=== PATIENT | male | born 1990 | race Caucasian/White ===

== ENCOUNTER 2020-03-08 10:10 | Emergency (ER) | payer SELFPAY ==
[2020-03-08 10:19] VITALS: BP 130/93; PULSE 112; RESP 16; TEMP 37.2; O2SAT 97; BMI 36.9
--- NOTE | 2020-03-08 10:22 | XR_ITS ---
WS: [id number] Left forearm, 2 views, 03/08/2020 Clinical Data: dog bite Comparison: None. Findings: No fracture or dislocations are seen. The soft tissues are normal. The visualized left wrist and elbo w show no obvious abnormalities. No radiopaque foreign body can be seen. XR/XR forearm LT 2V [id number] Impression: Negative for fracture.
--- NOTE | 2020-03-08 10:30 | ED_ITS ---
HPI - Animal Bite General: Chief Complaint: Animal Bite Stated Complaint: left forearm dog bite Time Seen by Provider: 03/08/20 10:16 History of Present Illness: HPI narrative: This is a 29-year-old patient presenting with a dog bite that occurred on Saturday. He was swimming at the [employer] in [place] and a stray dog bit him on the left forearm. He has 1 puncture wound to the upper forearm and a small one closer to the wrist on the ulnar aspect. He has been keeping them clean and applying triple antibiotic ointment. Today the area on his upper forearm is red, hot, swollen and he has red streaking up to his axilla. He is not feeling well in general. He does not have a fever but he is also been taking Tylenol. He does not know anything about the animal that caused the bite. He is generally healthy other than hypertension and takes lisinopril for that. MD complaint: animal bite Onset (ago): day(s) (2) Animal: dog Description of animal: unknown animal Mechanism: bite Location - Extremities: Left: forearm Pain description: dull Context: unprovoked Associated symptoms: Reports diaphoresis and other (General malaise); Deny headache(s) Treatments prior to arrival: antibiotic ointment Review of Systems General: Reports: 10 or more systems reviewed and unremarkable except in HPI and below Const: Reports: diaphoresis Eyes: Denies: change in vision ENMT: Denies: odynophagia Card: Denies: chest pain or swelling of feet/ankles Resp: Denies: dyspnea, productive cough or non-productive cough GI: Denies: abdominal pain, nausea or vomiting : Denies: flank pain Musc: Denies: neck pain or back pain Skin/Breast: Denies: rash Neuro: Denies: headache(s), numbness in extremities or weakness in extremities Nicko/Lymph: Denies: easy bruising or easy bleeding PFS ED PFSH: Social History (Updated 03/08/20 @ 10:23 by Liss De León RN) Smoking and tobacco status: former smoker Second hand smoke exposure: No Physical Exam Const: COMMON NORMALS: no acute distress, patient oriented x3, no limitations and alert GENERAL APPEARANCE: cooperative and comfortable HENMT: HEAD & SCALP: normal to inspection FACE & SINUS: normal facial exam Eye: GENERAL EYE: appearance normal, both eyes and all related structures Neck/C-Spine: COMMON NORMALS: supple, no meningeal signs and no JVD Chest: COMMONS NORMALS: normal inspection of the chest Resp: COMMON NORMALS: normal respiratory effort, No use of accessory muscles and clear to auscultation bilaterally AUSCULTATION: clear to auscultation bilaterally Cardio: COMMON NORMALS: no JVD, regular rhythm and No murmurs present (Cardio) RATE: tachycardic RHYTHM: regular rhythm GI: COMMON NORMALS: Normal to inspection, nondistended, normoactive bowel sounds present, Soft to palpation and non-tender INSPECTION: Yes normal to inspection AUSCULTATION: Yes normoactive bowel sounds PALPATION: Yes Soft to palpation Back/Pelvis: COMMON NORMALS: thoracic and lumbar spine normal to inspection Extremity: GENERAL: Yes normal exam except as noted LEFT UPPER EXTREMITY: Yes lower arm (Small puncture on the ulnar aspect near the wrist. This does not appear infected.) Left lower arm: Yes inspection (Puncture on the dorsal aspect of the upper forearm with surrounding erythema and streaking to the axilla. No fluctuance no drainage) Neuro: COMMON NORMALS: patient oriented x3, moves all extremities, no focal motor deficits and no sensory deficits noted SENSORIUM/ORIENTATION: Yes alert MENINGEAL SIGNS: Yes no meningeal signs Psych: COMMON NORMALS: mental status grossly normal, cooperative and normal affect Skin: COMMON NORMALS: no rashes or lesions noted and turgor normal GENERAL SKIN EXAM: no rashes or lesions noted and turgor normal Course ED course: X-ray looked good. Rabies prophylaxis and vaccination was started in the ED. Instructions were given for follow-up. Augmentin was given for infection and patient was given detailed return precautions. Vital Signs: Vital signs: Vital Signs Temperature 99.0 F 03/08/20 10:19 Pulse Rate 97 03/08/20 12:22 Respiratory Rate 18 03/08/20 12:22 Blood Pressure 144/88 03/08/20 12:22 Pulse Oximetry 98 03/08/20 12:22 MDM - Animal Bite MDM Narrative: Medical decision making narrative: Dog bite from unknown animal . Animal appeared relatively healthy per the patient however we discussed the need for rabies prophylaxis. Tetanus is up-to-date. There is a clear infection and will start some antibiotics. Also get a get an x-ray to look for any evidence of gas formation. Discharge Plan Discharge Patient Disposition: Home, Self-Care Clinical Impression: Need for prophylactic vaccination and inoculation against rabies Dog bite of left forearm with infection Qualifiers: Encounter type: initial encounter Qualified Code(s): S51.852A - Open bite of left forearm, initial encounter Condition: Stable Prescriptions: New amoxicillin-pot clavulanate 875-125 mg tablet 1 tab PO BID Qty: 28 RF: 0 No Action lisinopril 20 mg tablet 20 mg PO DAILY RF: 0 olanzapine 5 mg tablet 5 mg PO DAILY RF: 0 omeprazole 20 mg capsule,delayed release(DR/EC) 20 mg PO DAILY RF: 0 Probiotic 1 cap PO DAILY RF: 0 Discharge Orders: Discharge Order (Routine); Ordered 03/08/20 Ordered By: Sheila Medellin Discharge Diet: Usual diet Discharge Activity: Resume usual activity Patient Instructions: Animal Bite (ED), Rabies (ED) Activity Restrictions/Additional Instructions: Follow-up for the rest of the rabies series as instructed. Return to the emergency department if increasing redness, fever, swelling, streaking. Take the antibiotic exactly as prescribed. You may take ibuprofen and Tylenol for pain. Stand Alone Forms: Work/School Release Discharge Date/Time: 03/08/20 12:23 Coding Level of Care Code ED [employer]sc[employer] for Jonna Hester Exam Comprehensive
[2020-03-08] MEDS: ibuprofen 600 mg Tablet PO (10:35)
[2020-03-08] MEDS: amoxicillin-clav 875-125 mg Tablet 1 TAB PO (10:35)
[2020-03-08] MEDS: rabies vaccine 2.5 unit SDV IM (10:37)
[2020-03-08 12:22] VITALS: BP 144/88; PULSE 97; RESP 18; O2SAT 98
== END 2020-03-08 12:23 | disposition home or self-care (01) ==
PROVIDERS: Emergency Provider Emergency Medicine
DX: S51.852A Open bite of left forearm, initial encounter (principal); W54.0XXA Bitten by dog, initial encounter; Z29.14 Encounter for prophylactic rabies immune globulin; Z87.891 Personal history of nicotine dependence
CPT/HCPCS: 12345; 73090; 90375; 90471; 90675; 99281; 99283

== ENCOUNTER → 2020-06-28 15:57 | Outpatient (BNVA) | payer BC, SELFPAY | PROVIDERS: Visit Provider Family Medicine | DX: Z11.59 Encounter for screening for other viral diseases (principal); Z20.828 Contact with and (suspected) exposure to other viral communicable diseases | CPT/HCPCS: 87635 ==

== ENCOUNTER → 2020-09-21 09:59 | Outpatient (BNVA) | payer BC, SELFPAY | PROVIDERS: Visit Provider Family Medicine | DX: Z20.828 Contact with and (suspected) exposure to other viral communicable diseases (principal) | CPT/HCPCS: 87635 ==

== ENCOUNTER 2021-04-07 06:28 | Outpatient (CLI) | payer OTHER, SELFPAY ==
[2021-04-07 06:50] VITALS: BMI 34.7
--- NOTE | 2021-04-07 07:21 | ECG_ITS ---
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 Baseline heart rate was 88 beats per minute. Baseline blood pressure was 127/81 millimeters of mercury. Target heart rate was 191 beats per minute. Maximum heart rate achieved was 186, which was 97 % of the target heart rate. Maximum blood pressure was 177/101 millimeters of mercury. Total exercise time was 12 minutes 29 sec. Maximum METs achieved was 13.5, maximum VO2 was 47.3. The reason for ending the test was maximum effort achieved. The patient complained of shortness of breath during the stress test, which then resolved at the end of the test. ELECTROCARDIOGRAM: BASELINE: Showed sinus rhythm, normal axis, no significant ST-T changes at the baseline noted. EXERCISE: At the peak exercise level, no significant ST-T changes suggestive of ischemia noted. RECOVERY: During the recovery period, heart rate dropped appropriately. No significant ST-T changes in the recovery suggestive of ischemia noted. CONCLUSION: 1. Exercise capacity good. 2. Heart rate response was appropriate. 3. Blood pressure response was appropriate. 4. Symptoms not suggestive of ischemia. 5. Electrocardiogram portion of the stress test was not suggestive of ischemia. Electronically Signed On 05-16-2021 19:23:56 CDT by NITISH ALAN [id number]
--- NOTE | 2021-04-07 07:22 | NMCV_ITS ---
NM eliel perf SPECT r/s* [id number] Sky Villar Age: 30 Gender: M : 1990 Exam Date: 04/07/2021 07:57 Ordering Phys: Yvon Alan MD ([email or web address]) Technologist: SOCO Chavira Exam Location: [facility] Indications: SHORTNESS OF BREATH STRESS TEST [facility] IMAGE PROTOCOL Rest/Stress 1 Exercise Day Radiopharmaceutical Dose (mCi) Administration Site Administered by Rest: Tc-99m 10.9 IV SOCO Faith Sestamibi Stress:Tc-99m 32.9 IV SOCO Faith Sestamibi Rest: 07-Apr-2021 60 Discovery 630 Stress: 07-Apr-2021 30 Discovery 630 Radiopharmaceutical was injected at 87 % maximum heart rate. Images obtained in supine and prone position. SPECT RESULTS Technical Quality: Excellent Raw Data Analysis: Normal Image Corrections: No attenuation or motion correction applied Summed Stress Score: 3 Summed Rest Score: 0 Summed Difference Score: 3 PERFUSION FINDINGS Medium-sized area of persistently decreased tracer uptake noted in basal to mid anterior wall with mild reversibility in the anterior segment noted which could be an artifact and not the ischemia. Medium-sized area of basal to mid inferior inferolateral wall on both rest and stress images suggestive of artifact. FUNCTIONAL RESULTS (calculated via Gated SPECT) Stress Image LV EF (%): 71 Stress EDV (mL):121 TID: 0.97 Stress ESV (mL):35 Rest Image LV EF (%): 71 FUNCTIONAL FINDINGS: There is normal left ventricular systolic function. IMPRESSIONS Study is negative for ischemia. EKG segment will be documented separately. Yvon Alan MD (Electronically Signed) Final Date: 07 April 2021 18:10 S
[2021-04-07 08:59] VITALS: BP 153/101; PULSE 104
--- NOTE | 2021-04-07 10:15 | USCV_ITS ---
Sky Villar Age: 30 Gender: M : 1990 Exam Date: 04/07/2021 07:45 Ordering Phys: Yvon Alan MD ([email or web address]) Technologist: Ludmila De León [place] [facility] [place]ication: SOB BP: / HR: 102 Rhythm: Sinus Technical Quality: Adequate MEASUREMENTS (Male / Female) Normal Values 2D ECHO LV Diastolic Diameter PLAX 4.7 cm 4.2 - 5.9 / 3.9 - 5.3 cm LV Systolic Diameter PLAX 3.2 cm LV Chamber Size 3.9 cm IVS Diastolic Thickness 1.1 cm 0.6 - 1.0 / 0.6 - 0.9 cm IVS Systolic Thickness 1.4 cm LVPW Diastolic Thickness 1.3 cm 0.6 - 1.0 / 0.6 - 0.9 cm LVPW Systolic Thickness 1.6 cm RV Chamber Size 2.9 cm LVOT Diameter 2.0 cm LV Ejection Fraction 2D Teich 59.1 % LV Ejection Fraction MOD 2C 72.0 % LV Ejection Fraction 2C AL 72.4 % LA Diameter 2.8 cm LA Width 3.1 cm LA Height 3.5 cm RA Width 3.5 cm RA Height 4.0 cm Aorta at Sinotubular Diameter 3.0 cm M-MODE LV Diastolic Diameter MM 6.4 cm 4.2 - 5.9 / 3.9 - 5.3 cm LV Systolic Diameter MM 4.5 cm LV Ejection Fraction MM Teich 55.7 % IVS Diastolic Thickness MM 1.1 cm 0.6 - 1.0 / 0.6 - 0.9 cm IVS Systolic Thickness MM 1.4 cm LVPW Diastolic Thickness MM 1.6 cm 0.6 - 1.0 / 0.6 - 0.9 cm LVPW Systolic Thickness MM 1.3 cm Aortic Annulus Diameter 3.5 cm LA Ao Ratio MM 0.9 MV E Point Septal Separation 0.7 cm DOPPLER AV Peak Velocity 118.0 cm/s LVOT Peak Velocity 107.0 cm/s AV Area Cont Eq vti 2.5 cm squared AV Area Cont Eq pk 2.9 cm squared MV Area PHT 3.2 cm squared Mitral E to A Ratio 1.1 MV E' Velocity 35.5 cm/s Mitral E to MV E' Ratio 5.7 Mitral E to LV E' Lateral Ratio 5.1 Mitral E to LV E' Septal Ratio 6.5 TR Peak Velocity 184.2 cm/s TR Peak Gradient 13.6 mmHg TR Mean Velocity 147.4 cm/s TR Mean Gradient 9.4 mmHg TR Velocity Time Integral 57.8 cm TV Peak E Velocity 80.0 cm/s PV Peak Velocity 67.0 cm/s RV Acceleration Time 0.1 s RV Ejection Time 0.4 s RV AcT/ET 0.3 FINDINGS Left Ventricle Normal left ventricular cavity size. Normal left ventricular systolic function. No regional wall motion abnormalities. Left ventricular ejection fraction is estimated at 60 %. Normal diastolic function. Right Ventricle The right ventricle is normal in size and function. RVSP could not be calculated due to incomplete tricuspid regurgitation velocity profile. Right Atrium The right atrium is normal in size. Left Atrium The left atrium is normal in size. Mitral Valve Structurally normal mitral valve. No mitral valve stenosis. Trace mitral valve regurgitation. Aortic Valve Aortic valve sclerosis without stenosis. Trace aortic valve regurgitation. Tricuspid Valve Trace tricuspid valve regurgitation. Pulmonic Valve Structurally normal pulmonic valve without significant stenosis. There is no pulmonic regurgitation. Pericardium Normal pericardium without effusion. Aorta Normal ascending aorta dimension. CONCLUSIONS 1-Normal left ventricular cavity size. Normal left ventricular systolic function. No regional wall motion abnormalities. Left ventricular ejection fraction is estimated at 60 %. Normal diastolic function. 2-There is no pericardial effusion. 3-No significant valve abnormalities. 4-The right ventricle is normal in size and function. RVSP could not be calculated due to incomplete tricuspid regurgitation velocity profile. 5-Right atrial pressure is around 5 mm of mercury. 6-There are no prior echocardiogram studies to compare. Yvon Alan MD (Electronically Signed) Final Date: 09 April 2021 17:43 S
== END 2021-04-07 06:29 | disposition home or self-care (01) ==
PROVIDERS: PCP Family Medicine; Visit Provider Internal Medicine Cardiovascular Disease
DX: R06.02 Shortness of breath (principal); R07.9 Chest pain, unspecified
CPT/HCPCS: 78452; 93017; 93306; A9500

== ENCOUNTER → 2021-06-26 13:17 | Outpatient (BNVA) | payer OTHER, SELFPAY | PROVIDERS: PCP Family Medicine; Visit Provider Nurse Practitioner Family | DX: Z20.822 Contact with and (suspected) exposure to COVID-19 (principal) | CPT/HCPCS: 87635 ==

== ENCOUNTER 2022-10-19 05:27 | Emergency (ER) | payer OTHER, SELFPAY ==
[2022-10-19 05:28] VITALS: BMI 33.2
[2022-10-19 05:34] VITALS: BP 177/100; PULSE 91; RESP 16; TEMP 36.7; O2SAT 98
--- NOTE | 2022-10-19 05:39 | CTR_ITS ---
PROCEDURE INFORMATION: Exam: CT Head Without Contrast Exam date and time: 10/19/2022 5:45 AM Age: 31 years old Clinical indication: Pain; Headache; Patient HX: C/O AVILES, dizziness, and near syncope. TECHNIQUE: Imaging protocol: Computed tomography of the head without contrast. Radiation optimization: All CT scans at this facility use at least one of these dose optimization techniques: automated exposure control; mA and/or kV adjustment per patient size (includes targeted exams where dose is matched to clinical indication); or iterative reconstruction. REPORTING DATA: Count of CT and Cardiac NM exams in prior 12 months: This patient has received 0 known CTs and 0 known cardiac nuclear medicine studies in the 12 months prior to the current study. COMPARISON: No relevant prior studies available. RADIATION DOSE METRICS: Total DLP (mGy-cm): 1102.78 FINDINGS: Brain: Normal. No hemorrhage. Unremarkable white matter. No mass effect. Cerebral ventricles: No ventriculomegaly. Paranasal sinuses: Visualized sinuses are unremarkable. No fluid levels. Mastoid air cells: Visualized mastoid air cells are well aerated. Bones/joints: Unremarkable. No acute fracture. Soft tissues: Unremarkable. CT/CT head wo con* [id number] IMPRESSION: No acute intracranial abnormality.
--- NOTE | 2022-10-19 05:40 | W.ED.DIZZY ---
Documented by User: Stacey Gonzales MD 10/19/22 05:43 HPI - Dizziness General: Chief Complaint: Dizziness Stated Complaint: DIZZY Time Seen by Provider: 10/19/22 05:40 Source: patient and EMS Mode of arrival: EMS Limitations: no limitations History of Present Illness: HPI Narrative: 31-year-old male who states that last night around 11 he started having some nausea he states when he got up this morning and went to the bathroom was feeling lightheaded and nauseous he states that he he then believes he had a syncopal event he woke up to his shaking him he states that he has not taken his blood pressure pill this morning so he is hypertensive he has had some mild chest pains that he states is minimal and currently resolved he states he still has some nausea denies any abdominal pain denies headache to me but states that he did pass out. Associated symptoms: Reports chest pain, nausea and syncope; Denies chills or headache(s) Review of Systems Const: Denies: fever(s), chills, body aches or change in appetite Eyes: Denies: blurry vision or eye discomfort ENMT: Denies: throat pain or dental pain Card: Reports: chest pain and syncope Resp: Denies: dyspnea GI: Reports: nausea : Denies: dysuria Musc: Denies: neck pain or back pain Skin/Breast: Denies: rash Neuro: Denies: headache(s) Psych: Denies: depression Nicko/Lymph: Denies: easy bruising All/Imm: Denies: urticaria PFSH ED PFSH: Medical History History of hypertension Shortness of breath Family History Other CAD (coronary artery disease) Hypertension Social History Second hand smoke exposure: No Physical Exam Const: COMMON NORMALS: no acute distress, patient oriented x3 and healthy appearing HENMT: COMMON NORMALS: normocephalic and atraumatic HEAD & SCALP: normocephalic and atraumatic Eye: COMMON NORMALS: Equal, round and reactive pupils present and EOMs intact bilaterally PUPIL: Yes Equal, round and reactive pupils present Neck/C-Spine: COMMON NORMALS: full ROM and supple Chest: COMMONS NORMALS: normal inspection of the chest and normal palpation of entire chest wall Resp: COMMON NORMALS: normal respiratory effort, No retractions, No use of accessory muscles and clear to auscultation bilaterally AUSCULTATION: clear to auscultation bilaterally Cardio: COMMON NORMALS: regular rate, regular rhythm and No murmurs present (Cardio) RATE: regular rate RHYTHM: regular rhythm GI: COMMON NORMALS: Normal to inspection, nondistended, normoactive bowel sounds present, Soft to palpation, non-tender and no masses PALPATION: Yes Soft to palpation Extremity: COMMON NORMALS: normal to inspection and full ROM Neuro: COMMON NORMALS: patient oriented x3, moves all extremities and no focal motor deficits Psych: COMMON NORMALS: mental status grossly normal, Normal thought process present and cooperative THOUGHT PROCESS: Normal thought process present Skin: COMMON NORMALS: no rashes or lesions noted and no wounds GENERAL SKIN EXAM: no rashes or lesions noted Course Vital Signs: Vital signs: Vital Signs Temperature 98.1 F 10/19/22 05:34 Pulse Rate 81 10/19/22 09:21 Respiratory Rate 18 10/19/22 09:21 Blood Pressure 127/87 10/19/22 09:21 Pulse Oximetry 98 10/19/22 09:21 Oxygen Delivery Me thod 10/19/22 05:34 MDM - Dizziness Medical Decision Making Patient presents here with dizziness along with a syncopal event patient's pending blood work along with imaging care turned over to Dr. Castillo at shift change Lab Data 10/19/22 05:35 10/19/22 05:[address] 10/19/22 05:39 IMPRESSION: No acute intracranial abnormality. Chest X-Ray 10/19/22 07:49 IMPRESSION: Unremarkable chest radiograph. Laboratory Results WBC 11.3 10^3/uL (4.0-10.0) H 10/19/22 05:35 RBC 5.31 10^6/uL (4.1-5.3) H 10/19/22 05:35 Hgb 15.7 g/dL (11.7-16.6) 10/19/22 05:35 Hct 46.7 % (42.0-52.0) 10/19/22 05:35 MCV 87.9 fl (80-94) 10/19/22 05:35 MCH 29.6 pg (28.0-34.0) 10/19/22 05:35 MCHC 33.6 g/dL (30.0-36.0) 10/19/22 05:35 RDW 12.4 % (12.1-15.1) 10/19/22 05:35 Plt Count 240 10^3/cmm (130-400) 10/19/22 05:35 MPV 12.1 fL (7.4-10.4) H 10/19/22 05:35 Neut % (Auto) 70.5 % 10/19/22 05:35 Lymph % (Auto) 20.1 % 10/19/22 05:35 [place] % (Auto) 8.2 % 10/19/22 05:35 Eos % (Auto) 0.6 % 10/19/22 05:35 Baso % (Auto) 0.4 % 10/19/22 05:35 Neut # (Auto) 7.94 10^3/uL (1.8-7.7) H 10/19/22 05:35 Lymph # (Auto) 2.3 10^3/uL (0.8-4.8) 10/19/22 05:35 [place] # (Auto) 0.9 10^3/uL (0.2-0.9) 10/19/22 05:35 Eos # (Auto) 0.1 10^3/uL (0.0-0.8) 10/19/22 05:35 Baso # (Auto) 0.1 10^3/uL (0.0-0.1) 10/19/22 05:35 Nucleated RBC % (auto) 0 % 10/19/22 05:35 Nucleated RBCs # 0.0 /100WBC 10/19/22 05:35 Sodium 138 mmol/L (136-145) 10/19/22 05:35 Potassium 3.7 mmol/L (3.5-5.1) 10/19/22 05:35 Chloride 99 mmol/L (98-107) 10/19/22 05:35 Carbon Dioxide 26 mmol/L (22-29) 10/19/22 05:35 Anion Gap 16.7 (5-19) 10/19/22 05:35 BUN 15 mg/dL (6-20) 10/19/22 05:35 Creatinine 1.0 mg/dL (0.7-1.2) 10/19/22 05:35 GFR Calculation 87.7 mL/min (90-130) L 10/19/22 05:35 Glucose 95 mg/dL (65-115) 10/19/22 05:35 Calculated Osmolality 287 mOsm/kg (285-295) 10/19/22 05:35 Calcium 10.3 mg/dL (8.5-10.5) 10/19/22 05:35 Total Bilirubin 0.7 mg/dL (0.15-1.2) 10/19/22 05:35 AST 52 U/L (0-40) H 10/19/22 05:35 ALT 40 U/L (0-41) 10/19/22 05:35 Alkaline Phosphatase 93 U/L (40-130) 10/19/22 05:35 Troponin T Baseline 6 ng/L (0-15) 10/19/22 05:35 Troponin T 120 Minute 6.00 ng/L (0-15) 10/19/22 07:55 Delta Troponin T 0 ABS# (0-10) 10/19/22 07:55 Total Protein 8.8 g/dL (6.6-8.7) H 10/19/22 05:35 Albumin 4.9 g/dL (3.5-5.2) 10/19/22 05:35 Globulin 3.9 g/dL (1.3-4.6) 10/19/22 05:35 Lipase 18 U/L (13-60) 10/19/22 05:35 Discharge Plan Discharge Patient Disposition: Home Clinical Impression: Vasovagal near-syncope Condition: Stable Prescriptions: No Action amoxicillin-pot clavulanate [Augmentin] 875-125 mg tablet 1 tab PO BID 7 Days Qty: 14 0RF prednisone 20 mg tablet 20 mg PO DAILY 5 Days Qty: 5 0RF metoprolol tartrate 25 mg tablet 25 mg PO BID omeprazole 20 mg capsule,delayed release(DR/EC) 20 mg PO DAILY PRN Discharge Orders: Discharge ED (Routine); Ordered 10/19/22 Ordered By: Carlin Castillo Referrals: Lizzy Epstein MD [Primary Care Provider] - Discharge Diet: Usual diet Discharge Activity: Increase activity as tolerated Patient Instructions: Opioid Safety, Pain Management Activity Restrictions/Additional Instructions: You were seen today for a near syncopal episode. Your symptoms improved after fluids. You did have a second episode when your blood was redrawn which also responded to time and fluids. Some patients have vasovagal responses that are more easily triggered than others. Maintain good fluid intake rest the remainder of today follow-up your primary care doctor if symptoms persist or change. Your EKGs and heart enzymes were normal. Sign Out Sign Out Data: Patient Sign Out occurred on 10/19/22 at 06:02. Patient's care was discussed, and care was transferred from to Carlin Castillo DO. Coding Level of Care Code ED Artillery Officer for Chg Fwd Documented by User: Carlin Castillo DO 10/22/22 07:12 HPI - Dizziness General: Chief Complaint: Dizziness Stated Complaint: DIZZY Time Seen by Provider: 10/19/22 05:40 [facility] ED PFSH: Medical History History of hypertension Shortness of breath Family History Other CAD (coronary artery disease) Hypertension Social History Second hand smoke exposure: No Course Vital Signs: Vital signs: Vital Signs Temperature 98.1 F 10/19/22 05:34 Pulse Rate 81 10/19/22 09:21 Respiratory Rate 18 10/19/22 09:21 Blood Pressure 127/87 10/19/22 09:21 Pulse Oximetry 98 10/19/22 09:21 Oxygen Delivery Me thod 10/19/22 05:34 MDM - Dizziness Medical Decision Making Patient presents here with dizziness along with a syncopal event patient's pending blood work along with imaging care turned over to Dr. Castillo at shift change Patient care handoff received from Janet umana of ED evaluation. I personally saw and evaluated patient and reperformed mixon portions of E/M. Patient seen and examined. After the fluid is doing much better with the blood draw he had another vasovagal episode passed out got mildly diaphoretic it resolved. He is feeling better now we will go and discharge patient home follow-up with primary care Lab Data 10/19/22 05:35 10/19/22 05:[address] 10/19/22 05:39 IMPRESSION: No acute intracranial abnormality. Chest X-Ray 10/19/22 07:49 IMPRESSION: Unremarkable chest radiograph. Laboratory Results WBC 11.3 10^3/uL (4.0-10.0) H 10/19/22 05:35 RBC 5.31 10^6/uL (4.1-5.3) H 10/19/22 05:35 Hgb 15.7 g/dL (11.7-16.6) 10/19/22 05:35 Hct 46.7 % (42.0-52.0) 10/19/22 05:35 MCV 87.9 fl (80-94) 10/19/22 05:35 MCH 29.6 pg (28.0-34.0) 10/19/22 05:35 MCHC 33.6 g/dL (30.0-36.0) 10/19/22 05:35 RDW 12.4 % (12.1-15.1) 10/19/22 05:35 Plt Count 240 10^3/cmm (130-400) 10/19/22 05:35 MPV 12.1 fL (7.4-10.4) H 10/19/22 05:35 Neut % (Auto) 70.5 % 10/19/22 05:35 Lymph % (Auto) 20.1 % 10/19/22 05:35 [place] % (Auto) 8.2 % 10/19/22 05:35 Eos % (Auto) 0.6 % 10/19/22 05:35 Baso % (Auto) 0.4 % 10/19/22 05:35 Neut # (Auto) 7.94 10^3/uL (1.8-7.7) H 10/19/22 05:35 Lymph # (Auto) 2.3 10^3/uL (0.8-4.8) 10/19/22 05:35 [place] # (Auto) 0.9 10^3/uL (0.2-0.9) 10/19/22 05:35 Eos # (Auto) 0.1 10^3/uL (0.0-0.8) 10/19/22 05:35 Baso # (Auto) 0.1 10^3/uL (0.0-0.1) 10/19/22 05:35 Nucleated RBC % (auto) 0 % 10/19/22 05:35 Nucleated RBCs # 0.0 /100WBC 10/19/22 05:35 Sodium 138 mmol/L (136-145) 10/19/22 05:35 Potassium 3.7 mmol/L (3.5-5.1) 10/19/22 05:35 Chloride 99 mmol/L (98-107) 10/19/22 05:35 Carbon Dioxide 26 mmol/L (22-29) 10/19/22 05:35 Anion Gap 16.7 (5-19) 10/19/22 05:35 BUN 15 mg/dL (6-20) 10/19/22 05:35 Creatinine 1.0 mg/dL (0.7-1.2) 10/19/22 05:35 GFR Calculation 87.7 mL/min (90-130) L 10/19/22 05:35 Glucose 95 mg/dL (65-115) 10/19/22 05:35 Calculated Osmolality 287 mOsm/kg (285-295) 10/19/22 05:35 Calcium 10.3 mg/dL (8.5-10.5) 10/19/22 05:35 Total Bilirubin 0.7 mg/dL (0.15-1.2) 10/19/22 05:35 AST 52 U/L (0-40) H 10/19/22 05:35 ALT 40 U/L (0-41) 10/19/22 05:35 Alkaline Phosphatase 93 U/L (40-130) 10/19/22 05:35 Troponin T Baseline 6 ng/L (0-15) 10/19/22 05:35 Troponin T 120 Minute 6.00 ng/L (0-15) 10/19/22 07:55 Delta Troponin T 0 ABS# (0-10) 10/19/22 07:55 Total Protein 8.8 g/dL (6.6-8.7) H 10/19/22 05:35 Albumin 4.9 g/dL (3.5-5.2) 10/19/22 05:35 Globulin 3.9 g/dL (1.3-4.6) 10/19/22 05:35 Lipase 18 U/L (13-60) 10/19/22 05:35 Discharge Plan Discharge Patient Disposition: Home Clinical Impression: Vasovagal near-syncope Condition: Stable Prescriptions: No Action amoxicillin-pot clavulanate [Augmentin] 875-125 mg tablet 1 tab PO BID 7 Days Qty: 14 0RF prednisone 20 mg tablet 20 mg PO DAILY 5 Days Qty: 5 0RF metoprolol tartrate 25 mg tablet 25 mg PO BID omeprazole 20 mg capsule,delayed release(DR/EC) 20 mg PO DAILY PRN Discharge Orders: Discharge ED (Routine); Ordered 10/19/22 Ordered By: Carlin Castillo Referrals: Lizzy Epstein MD [Primary Care Provider] - Discharge Diet: Usual diet Discharge Activity: Increase activity as tolerated Patient Instructions: Opioid Safety, Pain Management Activity Restrictions/Additional Instructions: You were seen today for a near syncopal episode. Your symptoms improved after fluids. You did have a second episode when your blood was redrawn which also responded to time and fluids. Some patients have vasovagal responses that are more easily triggered than others. Maintain good fluid intake rest the remainder of today follow-up your primary care doctor if symptoms persist or change. Your EKGs and heart enzymes were normal. Sign Out Sign Out Data: Patient Sign Out occurred on 10/19/22 at 06:02. Patient's care was discussed, and care was transferred from to Carlin Castillo DO. Coding Level of Care Code ED Artillery Officer for Jonna Hester
[2022-10-19 05:46] LABS: Basophils # 0.1 10^3/uL (0.0-0.1); Basophils % 0.4 %; Eosinophils # 0.1 10^3/uL (0.0-0.8); Eosinophils % 0.6 %; Hematocrit 46.7 % (42.0-52.0); Hemoglobin 15.7 g/dL (11.7-16.6); Lymphocytes # 2.3 10^3/uL (0.8-4.8); Lymphocytes % 20.1 %; Mean Corpuscular HGB Conc 33.6 g/dL (30.0-36.0); Mean Corpuscular Hemoglobin 29.6 pg (28.0-34.0); Mean Corpuscular Volume 87.9 fl (80-94); Mean Platelet Volume 12.1 fL (7.4-10.4); Monocytes # 0.9 10^3/uL (0.2-0.9); Monocytes % 8.2 %; Neutrophils # 7.94 10^3/uL (1.8-7.7); Neutrophils % 70.5 %; Nucleated Red Blood Cells % 0 %; Platelet Count 240 10^3/cmm (130-400); Red Blood Count 5.31 10^6/uL (4.1-5.3); Red Cell Distribution Width 12.4 % (12.1-15.1); White Blood Count 11.3 10^3/uL (4.0-10.0)
--- NOTE | 2022-10-19 05:53 | ECG_ITS ---
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 Measurements Intervals [place] Rate: 88 P: 45 NH: 129 QRS: 27 QRSD: 120 T: 37 QT: 361 QTc: 439 Interpretive Statements SINUS RHYTHM WITH SINUS ARRHYTHMIA RIGHT BUNDLE BRANCH BLOCK [120+ ms QRS DURATION, UPRIGHT V1, 40+ ms S IN I/aVL/V4/V5/V6] No previous ECG available for comparison Electronically Signed On 10-19-2022 16:46:05 SIGNAL OPERATOR TECHNICAL by Emily Fraser M.D. [id number]
[2022-10-19] MEDS: ondansetron 2 mg/ML SDV 2 mL 4 MG IVP (06:03)
[2022-10-19 06:12] VITALS: BP 144/93; PULSE 91; RESP 18; O2SAT 96
[2022-10-19 06:17] LABS: Alanine Aminotransferase 40 U/L (0-41); Albumin Level 4.9 g/dL (3.5-5.2); Alkaline Phosphatase 93 U/L (40-130); Anion Gap 16.7 (5-19); Aspartate Amino Transferase 52 U/L (0-40); Blood Urea Nitrogen 15 mg/dL (6-20); Calcium 10.3 mg/dL (8.5-10.5); Carbon Dioxide 26 mmol/L (22-29); Chloride 99 mmol/L (98-107); Globulin 3.9 g/dL (1.3-4.6); Glomerular Filtration Rate 87.7 mL/min (90-130); Glucose 95 mg/dL (65-115); Lipase 18 U/L (13-60); Osmolality Calculated 287 mOsm/kg (285-295); Potassium 3.7 mmol/L (3.5-5.1); Sodium 138 mmol/L (136-145); Total Bilirubin 0.7 mg/dL (0.15-1.2); Total Protein 8.8 g/dL (6.6-8.7)
[2022-10-19 06:32] LABS: Troponin(5th) Baseline 6 ng/L (0-15)
--- NOTE | 2022-10-19 06:32 | PC.NURSE ---
Pt. states that he usually takes his blood pressure medications at 0800.
--- NOTE | 2022-10-19 07:49 | XR_ITS ---
WS: [id number] Exam: XR chest 1V portable [id number] Date/Time of Exam: 10/19/2022 8:04 AM Reason For Exam: near syncope No previous exams. Findings: The lungs are clear and fully expanded. Costophrenic angles are sharp. No infiltrates. Bronchovascula r relief appears normal. Cardiac silhouette is unremarkable. Bony elements are intact. XR/XR chest 1V portable [id number] IMPRESSION: Unremarkable chest radiograph.
--- NOTE | 2022-10-19 07:53 | ECG_ITS ---
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 Measurements Intervals [place] Rate: 84 P: 58 MI: 136 QRS: 38 QRSD: 98 T: 39 QT: 357 QTc: 424 Interpretive Statements SINUS RHYTHM LOW QRS VOLTAGE IN PRECORDIAL LEADS [QRS DEFLECTION < 1.0 mV IN CHEST LEADS] INCOMPLETE RIGHT BUNDLE BRANCH BLOCK [90+ ms QRS DURATION, TERMINAL R IN V1/V2, 40+ ms S IN I/aVL/V4/V5/V6] MINIMAL ST DEPRESSION [0.025+ mV ST DEPRESSION] Compared to ECG 10/19/2022 06:01:34 Low QRS voltage now present Incomplete right bundle-branch block now present ST (T wave) deviation now present Sinus arrhythmia no longer present Right bundle-branch block no longer present Electronically Signed On 10-19-2022 16:52:18 TAX STAFF ACCOUNTANT by Emily Fraser M.D. [id number]
[2022-10-19 08:05] VITALS: BP 141/91; BP 146/95; BP 149/82; PULSE 101; PULSE 88; PULSE 90
[2022-10-19 08:38] LABS: Troponin 5 2HR Delta 0 ABS# (0-10)
[2022-10-19] MEDS: sodium chloride 0.9% 1,000 ML 999 ML IV (08:38)
[2022-10-19 08:41] VITALS: BP 118/71; PULSE 74; RESP 18; O2SAT 99
--- NOTE | 2022-10-19 09:10 | PC.NURSE ---
PRESSURE BAG APPLIED TO FLUIDS PER VERBAL ORDER FROM PHYSICIAN
[2022-10-19 09:21] VITALS: BP 127/87; PULSE 81; RESP 18; O2SAT 98
== END 2022-10-19 09:24 | disposition home or self-care (01) ==
PROVIDERS: Emergency Medicine; Emergency Provider Family Medicine; PCP Family Medicine
DX: R55 Syncope and collapse (principal); I10 Essential (primary) hypertension
CPT/HCPCS: 70450; 71045; 80053; 83690; 84484; 85025; 93005; 96374; 99285; J2405; J7030